=== PATIENT | female | born 2005 | race Two or more races ===

== ENCOUNTER 2024-10-23 08:30 | Outpatient (RCR) | payer MEDICAID, SELFPAY ==
--- NOTE | 2024-10-22 08:30 | XR_ITS ---
Examination: Nuclear medicine thyroid scan Date and time: October 22, 2024 1548 hours INDICATIONS: Swelling in neck beginning 4 months ago TECHNIQUE AND FINDINGS: Oral administration [id number] uCi [id number] 6 hour 24-hour uptake values recorded as well as anterior and oblique scans 6 hour uptake 10.4% normal range 6-24% 24 hour uptake 20.4% normal range 10-36% Normal scan IMPRESSION: Normal study
[2024-10-22 08:38] LABS: HCG Qualitative,Urine Negative
== END 2024-10-28 23:59 | disposition home or self-care (01) ==
LOC: SNUC 08:30
PROVIDERS: PCP Nurse Practitioner Family; Referring Provider Nurse Practitioner Family; Visit Provider Nurse Practitioner Family
DX: E07.9 Disorder of thyroid, unspecified (principal); Z32.00 Encounter for pregnancy test, result unknown
CPT/HCPCS: 78013; 81025; A9516